=== PATIENT | male | born 1995 | race Caucasian/White ===

== ENCOUNTER 2017-07-27 12:26 | Inpatient (IN) | payer BC ==
[2017-07-27] MEDS ORDERED: ONDANSETRON DISINTEGRATING 4 MG TAB ONE (14:41)
--- NOTE | 2017-07-27 14:43 | EDPHY ---
H & P Stated Complaint: Vomiting Time Seen by Provider: 07/27/17 14:42 HPI/ROS: CHIEF COMPLAINT: Vomiting, out of insulin HISTORY OF PRESENT ILLNESS: The patient presents the ED with several days of vomiting. The patient is a insulin-dependent diabetic. He reportedly has been out of insulin for the past 4 days. The patient typically takes 32 units of NPH on a daily basis. He has continue to use short-acting insulin without checking his blood sugars as his glucometer is not working. He reports he has not checked his blood sugar in 2 weeks. Patient complains of generalized dizziness, mild dyspnea and a slight headache. He denies any history of fall or trauma. The patient denies significant past medical history. He takes no other medications. REVIEW OF SYSTEMS: A comprehensive 10 point review of systems is otherwise negative aside from elements mentioned in the history of present illness. Source: Patient Exam Limitations: No limitations - Personal History Current Tetanus/Diphtheria Vaccine: Unsure Current Tetanus Diphtheria and Acellular Pertussis (TDAP): Unsure - Medical/Surgical History Hx Asthma: No Hx Chronic Respiratory Disease: No Hx Diabetes: Yes Hx Cardiac Disease: No Hx Renal Disease: No Hx Cirrhosis: No Hx Alcoholism: No Hx HIV/AIDS: No Hx Splenectomy or Spleen Trauma: No Other PMH: ins dept diabetic - Social History Smoking Status: Current every day smoker - Physical Exam Exam: General Appearance: Alert, appears uncomfortable Eyes: Pupils equal and round no pallor or injection ENT, Mouth: Dry mucous membranes Respiratory: There are no retractions, lungs are clear to auscultation Cardiovascular: Regular rate and rhythm Gastrointestinal: Abdomen is soft and nontender, no masses, bowel sounds normal Neurological: A&O, normal motor function, normal sensory exam, normal cranial nerves Skin: Warm and dry, no rashes Musculoskeletal: Neck is supple nontender Extremities: symmetrical, full range of motion Constitutional: Initial Vital Signs Temperature (C) 37.0 C 07/27/17 12:39 Heart Rate 100 07/27/17 12:39 Respiratory Rate 18 07/27/17 12:39 Blood Pressure 113/69 07/27/17 12:39 O2 Sat (%) 98 07/27/17 12:39 O2 Delivery Mode Room Air Allergies/Adverse Reactions: No Known Allergies Allergy (Unverified 07/27/17 12:39) Home Medications: Medication Instructions Recorded novoLOG 07/27/17 Medical Decision Making ED Course/Re-evaluation: The patient presents the ED with vomiting, lack of insulin and general malaise. The patient's fingerstick blood glucose was 300 upon arrival. Patient had an IV established. He received 1 L of normal saline. He is noted to have a venous pH is 7.23 and an anion gap of 27. The patient was given 5 units regular insulin bolus and started on insulin drip. The patient will require admission to the intensive care unit for management of his diabetic ketoacidosis. I consulted with Dr. Tessa Hall at 4:00 p.m. who will admit the patient. I re-evaluated the patient at 4:00 p.m. informing him of the workup and need for hospitalization. Differential Diagnosis: Differential diagnosis considered includes hyperglycemia, dehydration, diabetic ketoacidosis Critical Care Time: Critical care time exclusive of procedures and exclusive of the PA's time was 35 minutes, performed by myself, Aamir Fontana MD. The patient presents to the ED with vomiting and diabetic ketoacidosis. The patient received rehydration with 2 L of normal saline. He was started on insulin drip and given a upon bolus. He will be admitted to the intensive care unit for further stabilization. - Data Points Laboratory Results: Laboratory Results 07/27/17 15:10 07/27/17 15:10 07/27/17 07/27/17 07/27/17 15:10 15:10 15:10 WBC RBC Hgb Hct MCV MCH MCHC RDW Plt Count MPV Neut % (Auto) Lymph % (Auto) Hinds % (Auto) Eos % (Auto) Baso % (Auto) Nucleat RBC Rel Count Absolute Neuts (auto) Absolute Lymphs (auto) Absolute Monos (auto) Absolute Eos (auto) Absolute Basos (auto) Absolute Nucleated RBC Immature Gran % Immature Gran # VBG pH 7.23 L (7.31-7.42) Sodium 139 mEq/L mEq/L (134-144) Potassium 5.2 mEq/L mEq/L (3.5-5.2) Chloride 100 mEq/L mEq/L (97-110) Carbon Dioxide 12 mEq/l L mEq/l (22-31) Anion Gap 27 mEq/L H mEq/L (8-16) BUN 19 mg/dL mg/dL (7-23) Creatinine 0.7 mg/dL mg/dL (0.7-1.3) Estimated GFR > 60 Glucose 381 mg/dL H mg/dL (70-100) POC Glucose Calcium 10.1 mg/dL mg/dL (8.5-10.4) Beta-Hydroxybutyrate Pending Serum Ketones Cancelled 07/27/17 07/27/17 15:10 13:21 WBC 13.26 10^3/uL H 10^3/uL (3.80-9.50) RBC 5.30 10^6/uL 10^6/uL (4.40-6.38) Hgb 16.9 g/dL g/dL (13.7-17.5) Hct 48.2 % % (40.0-51.0) MCV 90.9 fL fL (81.5-99.8) MCH 31.9 pg pg (27.9-34.1) MCHC 35.1 g/dL g/dL (32.4-36.7) RDW 11.3 % L % (11.5-15.2) Plt Count 250 10^3/uL 10^3/uL (150-400) MPV 9.9 fL fL (8.7-11.7) Neut % (Auto) 93.5 % H % (39.3-74.2) Lymph % (Auto) 4.8 % L % (15.0-45.0) Hinds % (Auto) 1.0 % L % (4.5-13.0) Eos % (Auto) 0.0 % L % (0.6-7.6) Baso % (Auto) 0.4 % % (0.3-1.7) Nucleat RBC Rel Count 0.0 % % (0.0-0.2) Absolute Neuts (auto) 12.41 10^3/uL H 10^3/uL (1.70-6.50) Absolute Lymphs (auto) 0.63 10^3/uL L 10^3/uL (1.00-3.00) Absolute Monos (auto) 0.13 10^3/uL L 10^3/uL (0.30-0.80) Absolute Eos (auto) 0.00 10^3/uL L 10^3/uL (0.03-0.40) Absolute Basos (auto) 0.05 10^3/uL 10^3/uL (0.02-0.10) Absolute Nucleated RBC 0.00 10^3/uL 10^3/uL (0-0.01) Immature Gran % 0.3 % % (0.0-1.1) Immature Gran # 0.04 10^3/uL 10^3/uL (0.00-0.10) VBG pH Sodium Potassium Chloride Carbon Dioxide Anion Gap BUN Creatinine Estimated GFR Glucose POC Glucose 309 mg/dL H mg/dL (70-100) Calcium Beta-Hydroxybutyrate Serum Ketones Medications Given: Discontinued Medications Sodium Chloride (Ns) 1,000 mls @ 0 mls/hr IV ONCE ONE; Wide Open PRN Reason: Protocol Stop: 07/27/17 15:37 Last Admin: 07/27/17 15:00 Dose: 1,000 mls Point of Care Test Results: 07/27/17 13:21 POC Glucose 309 H Departure - Departure Disposition: [facility] Inpatient Acute Clinical Impression: Diabetic ketoacidosis Condition: Fair Referrals: NONE *PRIMARY CARE P,. [Primary Care Provider] - As per Instructions
[2017-07-27 15:20] LABS: % IMMATURE GRANULYOCYTES 0.3 % (0.0-1.1); ABSOLUTE IMMATURE GRANULOCYTES 0.04 10^3/uL (0.00-0.10); ADD DIFF? NO; ADD MORPH? NO; ADD SCAN? NO; ATYPICAL LYMPHOCYTE FLAG 0 (0-99); FRAGMENT RBC FLAG 0 (0-99); HEMATOCRIT 48.2 % (40.0-51.0); HEMOGLOBIN 16.9 g/dL (13.7-17.5); LEFT SHIFT FLG 0 (0-99); LIPEMIA HEMOLYSIS FLAG 90 (0-99); MEAN CELL HEMOGLOBIN 31.9 pg (27.9-34.1); MEAN CELL HEMOGLOBIN CONCENTR. 35.1 g/dL (32.4-36.7); MEAN CELL VOLUME 90.9 fL (81.5-99.8); MEAN PLATELET VOLUME 9.9 fL (8.7-11.7); PLATELET CLUMPS FLAG 0 (0-99); PLATELET COUNT 250 10^3/uL (150-400); RED CELL DISTRIBUTION WIDTH 11.3 % (11.5-15.2)
[2017-07-27 15:32] LABS: ANION GAP 27 mEq/L (8-16); CALCIUM 10.1 mg/dL (8.5-10.4); CARBON DIOXIDE 12 mEq/l (22-31); CHLORIDE 100 mEq/L (97-110); CREATININE 0.7 mg/dL (0.7-1.3); GLOMERULAR FILTRATION RATE > 60; GLUCOSE 381 mg/dL (70-100); POTASSIUM 5.2 mEq/L (3.5-5.2); SODIUM 139 mEq/L (134-144)
[2017-07-27] MEDS ORDERED: NS 1,000 ML IV ONE ×2 (15:36→15:49)
[2017-07-27] MEDS ORDERED: INSULIN REGULAR HUMAN 100 UNIT/ML IVP ONE (15:49)
[2017-07-27] MEDS ORDERED: INSULIN REGULAR HUMAN 100 UNIT, COSIGN. REQUIRED 1 EA in NS 100 ML IV ONE (15:49)
[2017-07-27] MEDS ORDERED: ONDANSETRON 4 MG/2 ML VIAL IVP PRN (17:43)
[2017-07-27] MEDS ORDERED: PROMETHAZINE HCL 25 MG/ML INJ IVP PRN (17:43)
[2017-07-27] MEDS ORDERED: ACETAMINOPHEN 325 MG TAB PO PRN (17:43)
[2017-07-27] MEDS ORDERED: D5W 1/2 NS W/ 20 KCl/L 1,000 ML IV SCH (17:45)
--- NOTE | 2017-07-27 18:23 | GHP ---
[f rep st] HISTORY AND PHYSICAL DATE OF ADMISSION: 07/27/2017 CHIEF COMPLAINT: Vomiting. HISTORY: The patient is a 22-year-old type 1 diabetic since age 9, who just moved to [place] from [facility] 1-1/2 months ago. He has not yet established a local physician. He ran out of his ins ulin because his physician in [place] was not willing to prescribe him anymore since he is out of the area. He has not had any Lantus for 4 days. He also ran out of glucose monitoring strips. He has a lot of short-acting insulin, which he has continued to take, but he has been unable to check his glucose. His symptoms include nausea, vomiting, stomach pain, congestion, weakness, fatigue, he adache, dizziness, and dry mouth. He did have a job interview today but vomited during the interview . PAST MEDICAL HISTORY: Diabetes type 1 since age 9. He has had DKA 1-2 times in the past. MEDICATIONS: Please see computer record for full detailed list. ALLERGIES: No known drug allergies. SOCIAL HISTORY: He has just moved here from [place], [place]. He is living with his broth er. Currently working on getting a job. He has a supportive mother back in [place] who is melanie sanches to mail him some insulin. REVIEW OF SYSTEMS: Complete review of systems obtained. Review of systems is negative regarding con stitutional, HEENT, GI, pulmonary, cardiovascular, , hematology, skin, musculoskeletal, endocrine, psych, except for positives and negatives as noted in HPI. FAMILY HISTORY: Reviewed and noncontributory to presenting complaint. PHYSICAL EXAMINATION: GENERAL: Well-developed, well-nourished male, in no acute distress. VITAL SI GNS: Temperature 37.0, pulse 102, blood pressure 114/77, saturating 100% on room air. EYES: Normal conjunctivae. Pupils are equal, round, reactive to light. ENT: Normal ears and nose. Hearing int act. Normal lips and teeth. Oropharynx moist. NECK: Trachea midline. No thyromegaly. CHEST: No rmal respiratory effort. LUNGS: Clear to auscultation bilaterally. CARDIOVASCULAR: Regular rate a nd rhythm. No murmur. No lower extremity edema. ABDOMEN: Soft. Nontender. No hepatosplenomegaly . SKIN: Warm, dry, intact. No rash. MUSCULOSKELETAL: No cyanosis or clubbing. Strength 5/5 uppe r and lower extremities. NEUROLOGIC: Cranial nerves intact. Normal sensation to light touch. PSYC H: Alert and oriented x3. Normal mood and affect. Normal judgment and insight. Normal memory. LABORATORY DATA: White count 13.26, hematocrit 48.2, platelets 250. Sodium 139, potassium 5.2, chlo ride 100, bicarb 12, anion gap 27, BUN 19, creatinine 0.7, glucose 381. Venous pH is 7.23. This case was discussed with Dr. Fadi Fontana in the emergency room. He was started on insulin drip fo r DKA. ASSESSMENT AND PLAN: 1. Diabetic ketoacidosis secondary to insulin noncompliance. He just moved to [place] and needs to establish local primary care. He has run out of insulin. Will place on an insulin drip and DKA pro tocol. Will follow serial Chem-7's. Case Management should see him in the morning to help him estab grabiel with a local physician. 2. Leukocytosis. I suspect this is a stress reaction. I doubt he is having a bacterial infection. He does have upper respiratory tract symptoms. Will check a respiratory PCR. Will pursue chest x-r ay only if his leukocytosis and symptoms persist after DKA is resolved. CODE STATUS: Full. ADMISSION STATUS: Will admit to observation as I anticipate discharge home tomorrow once he is out o f DKA. DEEP VEIN THROMBOSIS PROPHYLAXIS: He is low risk. /[id number]/MODL
[2017-07-27 18:41] LABS: ANION GAP 18 mEq/L (8-16); CALCIUM 8.8 mg/dL (8.5-10.4); CARBON DIOXIDE 11 mEq/l (22-31); CHLORIDE 104 mEq/L (97-110); CREATININE 0.6 mg/dL (0.7-1.3); GLOMERULAR FILTRATION RATE > 60; GLUCOSE 239 mg/dL (70-100); POTASSIUM 4.1 mEq/L (3.5-5.2); SODIUM 133 mEq/L (134-144)
[2017-07-27] MEDS: INSULIN REGULAR HUMAN 100 UNIT in NS 100 ML IV SCH ×2 (21:40→22:22)
[2017-07-27 23:05] LABS: ANION GAP 11 mEq/L (8-16); CALCIUM 8.3 mg/dL (8.5-10.4); CARBON DIOXIDE 17 mEq/l (22-31); CHLORIDE 108 mEq/L (97-110); CREATININE 0.5 mg/dL (0.7-1.3); GLOMERULAR FILTRATION RATE > 60; GLUCOSE 201 mg/dL (70-100); POTASSIUM 3.9 mEq/L (3.5-5.2); SODIUM 136 mEq/L (134-144)
[2017-07-28 02:33] LABS: ANION GAP 10 mEq/L (8-16); CALCIUM 8.9 mg/dL (8.5-10.4); CARBON DIOXIDE 19 mEq/l (22-31); CHLORIDE 113 mEq/L (97-110); CREATININE 0.5 mg/dL (0.7-1.3); GLOMERULAR FILTRATION RATE > 60; GLUCOSE 85 mg/dL (70-100); POTASSIUM 4.2 mEq/L (3.5-5.2); SODIUM 142 mEq/L (134-144)
[2017-07-28] MEDS ORDERED: D50W 25 GM/50 ML SYR IVP ONE ×2 (03:17→03:45)
[2017-07-28 03:38] LABS: % IMMATURE GRANULYOCYTES 0.4 % (0.0-1.1); ABSOLUTE IMMATURE GRANULOCYTES 0.07 10^3/uL (0.00-0.10); ADD DIFF? NO; ADD MORPH? NO; ADD SCAN? NO; ATYPICAL LYMPHOCYTE FLAG 10 (0-99); FRAGMENT RBC FLAG 0 (0-99); HEMATOCRIT 39.6 % (40.0-51.0); HEMOGLOBIN 14.6 g/dL (13.7-17.5); LEFT SHIFT FLG 0 (0-99); LIPEMIA HEMOLYSIS FLAG 90 (0-99); MEAN CELL HEMOGLOBIN 32.8 pg (27.9-34.1); MEAN CELL HEMOGLOBIN CONCENTR. 36.9 g/dL (32.4-36.7); MEAN PLATELET VOLUME 9.7 fL (8.7-11.7); PLATELET CLUMPS FLAG 0 (0-99); PLATELET COUNT 314 10^3/uL (150-400); RED BLOOD CELL COUNT 4.45 10^6/uL (4.40-6.38); RED CELL DISTRIBUTION WIDTH 11.4 % (11.5-15.2)
[2017-07-28 04:12] LABS: ANION GAP 10 mEq/L (8-16); CALCIUM 8.5 mg/dL (8.5-10.4); CARBON DIOXIDE 18 mEq/l (22-31); CHLORIDE 110 mEq/L (97-110); CREATININE 0.5 mg/dL (0.7-1.3); GLOMERULAR FILTRATION RATE > 60; GLUCOSE 156 mg/dL (70-100); MAGNESIUM 1.7 mg/dL (1.6-2.3); POTASSIUM 3.7 mEq/L (3.5-5.2); SODIUM 138 mEq/L (134-144)
--- NOTE | 2017-07-28 08:53 | HOSPPROG ---
Hospitalist Progress Note Assessment/Plan: #DKA: due to being out of insulin. Gap closed quickly this morning and restart glargine. However, gap reopened this afternoon. -cont IVF, q4 BMP. -CM assisting with appt at DC #Leukocytosis: Rhino/enterovirus #Metabolic anion gap acidosis: due to DKA. Resolved, but reopened #Diet: cardiac #Disp: warrants inpatient admission with DKA, anion gap acidosis. Requires insulin, serial BMP Critical care time: 35 min reviewing records, discussing med regimen with patient. D/w Dr. Enriquez and ICU team Subjective: still mild abd pain. Drop cough Objective: Vital Signs Temp Pulse Resp BP Pulse Ox 36.8 C 91 18 94/46 L 97 07/28/17 08:00 07/28/17 08:00 07/28/17 08:00 07/28/17 08:00 07/28/17 08:00 Microbiology 07/27/17 20:45 Respiratory Panel (PCR) - Final Nasal, Sinus - [place] Viral Transport Human Rhinovirus/Enterovirus Laboratory Results 07/28/17 03:16 07/28/17 03:40 07/27/17 07/28/17 07/29/17 05:59 05:59 05:59 Intake Total 4865 Output Total 2150 Balance 2715 - Physical Exam Constitutional: no apparent distress Eyes: PERRL Ears, Nose, Mouth, Throat: moist mucous membranes, hearing normal Cardiovascular: regular rate and rhythym, no murmur, rub, or gallop Respiratory: no respiratory distress, no rales or rhonchi Gastrointestinal: normoactive bowel sounds, soft, non-tender abdomen Genitourinary: no bladder fullness Skin: warm Musculoskeletal: full muscle strength Neurologic: AAOx3, CN II-XII Intact Psychiatric: interacting appropriately ICD10 Worksheet Patient Problems: Problems Problem Status Onset Diabetic ketoacidosis Acute
[2017-07-28] MEDS ORDERED: Insulin Aspart [Novolog Flexpen] 0 UNIT SQ SCH (09:00)
[2017-07-28 09:10] LABS: HEMOGLOBIN A1C 12.6 % (4.0-6.0)
[2017-07-28] MEDS ORDERED: D50W 25 GM/50 ML VIAL IVP PRN (09:40)
[2017-07-28] MEDS ORDERED: D50W 25 GM/50 ML SYR IVP PRN ×2 (09:40→17:39)
[2017-07-28] MEDS ORDERED: PARAMETERS MISC PRN (09:40)
[2017-07-28] MEDS: INSULIN LISPRO 100 UNIT/1 ML VIAL LOW SC SCH ×3 (10:09→17:22)
[2017-07-28] MEDS: INSULIN GLARGINE 100 UNITS/ML SYRINGE SC SCH (11:08)
[2017-07-28 12:12] LABS: GLUCOSE 471 mg/dL (70-100)
[2017-07-28] MEDS ORDERED: INSULIN GLARGINE 100 UNITS/ML SYRINGE SC SCH (12:30)
--- NOTE | 2017-07-28 12:53 | ASMTCASEMG ---
Living Arrangements What is your living Answers: With Other Relative(s) arrangement? Who do you live with? Type Of Residence What kind of residence do Answers: House you live in? Discharge Plan Comments Coordination Status Comments Notes: Patient is a 22yo male [place] He is living with his brother in [place]. Patient ran out of his insulin due to his regular dr not being willing to prescribe medications since he is no longer in [place]. Patient was admitted for diabetic ketoacidosis and leukocytosis. Dr. Zeng requests patient be set up with a PCP here in [place]. Contacted [facility] and they have scheduled patient for Monday07-31-17 at 11:30AM with Dr. Masters. Appointment was given to patient. CM will follow for any other d/c needs. Date Signed: 07/28/2017 12:52 PM Electronically Signed By:Cecilia Coulter LCSW
[2017-07-28] MEDS ORDERED: INSULIN GLARGINE 100 UNITS/ML SYRINGE SC ONE (13:00)
[2017-07-28 14:58] LABS: ANION GAP 18 mEq/L (8-16); CALCIUM 9.2 mg/dL (8.5-10.4); CARBON DIOXIDE 16 mEq/l (22-31); CHLORIDE 98 mEq/L (97-110); CREATININE 0.6 mg/dL (0.7-1.3); GLOMERULAR FILTRATION RATE > 60; GLUCOSE 477 mg/dL (70-100); POTASSIUM 4.5 mEq/L (3.5-5.2); SODIUM 132 mEq/L (134-144)
--- NOTE | 2017-07-28 15:28 | ASMTCMCOM ---
CM Note CM Note Notes: Patient was given information on [facility] in the event he has any insurance issues in securing his insulin. Anticipate patient will D/C today. CM available if needs arise. Date Signed: 07/28/2017 03:28 PM Electronically Signed By:Cecilia Coulter LCSW
[2017-07-28] MEDS: INSULIN LISPRO 100 UNIT/ML SC SCH (17:46)
--- NOTE | 2017-07-28 19:41 | PDMN ---
Medical Necessity Medical necessity: C/M review: Patient meets Inpatient criteria under [facility] M- 130 Diabetes (DKA); Acute and persistent DKA due to being out of insulin, 2016: glucose 381-201, anion gap 18, VBG lactic acid 7.23, beta- hydroxybutyrate 5.66, 07/28/2017: glucose 38-477, anion gap 18, leukocytosis, WBC 13.26, 17.33 due to rhino/enterovirus requiring 07/27/2017 IV Regular Human Insulin infusion ongoing IV fluids, transition to subcutaneous insulin, basic metabolic panel labs Q 4 hrs., comorbid type I diabetes. MD anticipates > 2 MN LOS for ongoing med nec for eval and TX of above.
[2017-07-28 21:58] LABS: ANION GAP 12 mEq/L (8-16); CALCIUM 9.7 mg/dL (8.5-10.4); CARBON DIOXIDE 24 mEq/l (22-31); CHLORIDE 97 mEq/L (97-110); CREATININE 0.6 mg/dL (0.7-1.3); GLOMERULAR FILTRATION RATE > 60; GLUCOSE 336 mg/dL (70-100); POTASSIUM 4.3 mEq/L (3.5-5.2); SODIUM 133 mEq/L (134-144)
[2017-07-29 01:08] LABS: ANION GAP 12 mEq/L (8-16); CALCIUM 9.5 mg/dL (8.5-10.4); CARBON DIOXIDE 25 mEq/l (22-31); CHLORIDE 99 mEq/L (97-110); CREATININE 0.6 mg/dL (0.7-1.3); GLOMERULAR FILTRATION RATE > 60; GLUCOSE 301 mg/dL (70-100); SODIUM 136 mEq/L (134-144)
[2017-07-29] MEDS: NS 1,000 ML IV SCH ×2 (04:59→08:37)
[2017-07-29 05:07] LABS: HEMATOCRIT 42.8 % (40.0-51.0); HEMOGLOBIN 14.9 g/dL (13.7-17.5); MEAN CELL HEMOGLOBIN 31.3 pg (27.9-34.1); MEAN CELL HEMOGLOBIN CONCENTR. 34.8 g/dL (32.4-36.7); MEAN CELL VOLUME 89.9 fL (81.5-99.8); RED BLOOD CELL COUNT 4.76 10^6/uL (4.40-6.38); RED CELL DISTRIBUTION WIDTH 11.3 % (11.5-15.2)
[2017-07-29 05:37] LABS: ANION GAP 11 mEq/L (8-16); CARBON DIOXIDE 24 mEq/l (22-31); CHLORIDE 102 mEq/L (97-110); CREATININE 0.6 mg/dL (0.7-1.3); GLOMERULAR FILTRATION RATE > 60; GLUCOSE 255 mg/dL (70-100); SODIUM 137 mEq/L (134-144)
[2017-07-29] MEDS: INSULIN GLARGINE 100 UNITS/ML SYRINGE SC SCH (08:33)
[2017-07-29] MEDS: INSULIN LISPRO 100 UNIT/ML SC SCH (08:33)
[2017-07-29 10:20] VITALS: BP 112/66; PULSE 96; RESP 17; TEMP 98.4; O2SAT 95
--- NOTE | 2017-07-29 10:36 | HOSPPROG ---
Hospitalist Progress Note Assessment/Plan: 22 yo M w DKA 2/2 no long acting insulin gap closed eating counselled smoking cessation home today > 30 minutes Subjective: gap closed. eating Objective: Vital Signs Temp Pulse Resp BP Pulse Ox 36.9 C 96 17 112/66 95 07/29/17 10:00 07/29/17 10:00 07/29/17 10:00 07/29/17 10:00 07/29/17 10:00 Laboratory Results 07/29/17 05:00 07/29/17 05:00 07/28/17 07/29/17 07/30/17 05:59 05:59 05:59 Intake Total 3355 Balance 3355 - Physical Exam Constitutional: no apparent distress, appears nourished Eyes: PERRL, anicteric sclera Ears, Nose, Mouth, Throat: moist mucous membranes, hearing normal Cardiovascular: regular rate and rhythym, no murmur, rub, or gallop Respiratory: no respiratory distress, no rales or rhonchi, expiratory wheeze Gastrointestinal: normoactive bowel sounds, soft, non-tender abdomen Genitourinary: no bladder fullness, No stock in urethra Skin: warm, normal color Musculoskeletal: full muscle strength Neurologic: AAOx3 ICD10 Worksheet Patient Problems: Problems Problem Status Onset Diabetic ketoacidosis Acute
--- NOTE | 2017-07-29 11:02 | GDS ---
[f rep st] DISCHARGE SUMMARY DISCHARGE DIAGNOSES: 1. Diabetic ketoacidosis. 2. Type 1 diabetes. 3. Tobacco use. Please see admission history and physical by Dr. Tessa Hall. Patient presented with DKA after carmichael ving no long-acting insulin because he had recently moved here and had no refills. His gap closed wi th an insulin drip but then reopened again. He was observed overnight. His gap has closed. He is e ating. He feels well. He has some wheezing consistent with an upper respiratory infection, but is o therwise well. Smoking cessation was counseled and advised. /[id number]/MODL
--- NOTE | 2017-07-29 18:54 | ASDISCHSUM ---
Discharge Information Plan Status:Home with No Needs Medically Cleared to Leave:07/28/2017 Discharge Date:07/29/2017 11:48 AM CM D/C Disposition:Home, Routine, Self-Care ADT D/C Disposition:Home, Routine, Self-Care Projected Discharge Date:07/29/2017 11:48 AM Transportation at D/C:Taxicab Discharge Delay Reason: Follow-Up Date:07/29/2017 11:48 AM Discharge Slot:1 - 8:01 am - 12:00 noon Final Diagnosis:Type I diabetes, Diabetic Ketoacidosis, tobacco use Placement Information Patient Contact Information Contact Name:MYLENE Relationship:Mother Address:[address] [place] [address] Work Phone: City:[facility] Phone: State/Zip Code:[place] [address] Email: Financial Information Financial Class:HMO and PPO Plans Primary Plan Desc: OUT OF STATE PPO Primary Plan Number:[id number] Secondary Plan Desc: Secondary Plan Number: Assessment Information [facility] Initial CM Assessment Living Arrangements What is your living Answers: With Other Relative(s) arrangement? Who do you live with? Type Of Residence What kind of residence do Answers: House you live in? Discharge Plan Comments Coordination Status Comments Notes: Patient is a 22yo male who recently moved to [place] from [place]. He is living with his brother in [place]. Patient ran out of his insulin due to his regular dr not being willing to prescribe medications since he is no longer in [place]. Patient was admitted for diabetic ketoacidosis and leukocytosis. Dr. Zeng requests patient be set up with a PCP here in [place]. Contacted [facility] and they have scheduled patient for Monday07-31-17 at 11:30AM with Dr. Masters. Appointment was given to patient. CM will follow for any other d/c needs. Date Signed: 07/28/2017 12:52 PM Electronically Signed By:Cecilia Coulter LCSW [facility] CM Progress Note CM Note CM Note Notes: Patient was given information on [facility] in the event he has any insurance issues in securing his insulin. Anticipate patient will D/C today. CM available if needs arise. Date Signed: 07/28/2017 03:28 PM Electronically Signed By:Cecilia Coulter LCSW Case Management Discharge Plan Note Case Management Discharge Discharge Order Complete? Answers: Yes Followup Appointment 07/31/2017 11:30 AM Patient to Obtain Answers: Independently Medications Transportation Arranged Answers: Taxi - Voucher Transport will Pick (Date 07/29/2017 11:00 AM & Time) EMTALA Complete Answers: No Notes: n/a Case Management Transport Answers: No Notes: n/a Form Complete Faxed Final Orders Answers: No Notes: n/a Agency/Facility Transfer Answers: No Notes: n/a Report Printed & Faxed to Receiving Agency Family Notified Answers: No Notes: Pt to notify Discharge Comments Notes: Reviewed chart regarding discharge plan, pt's progress. Per MD, pt to discharge home independently w/ no identified needs. requested taxicab voucher so pt wouldn't have to walk across town. Pt new to [place], [facility] w/ utilizing bus, no [place] available. [employer] called for ride; voucher provided. Pt given follow-up information for appt at [facility] Monday07/31/17 at 11:30. Pt also given phone number for [facility]. IM not signed, not applicable. CM avail for any further issues or concerns. Date Signed: 07/29/2017 06:53 PM Electronically Signed By:Erlinda Rosenberg RN Intervention Information Intervention Type:Clip Date of Service:07/29/2017 06:49 PM Patient Type:Inpatient Staff Member:ESPERANZA Rosenberg Taylor Hours:0.25 Discipline: Severity: Comment:Paulina called at MD request. Pt to [facility] to get home.
== END 2017-07-29 11:48 | disposition home or self-care (01) | DRG 639 ==
LOC: F2N 17:12 → OBSVTOIN 07-28 16:30
PROVIDERS: ADMIT Internal Medicine; ATTEND Internal Medicine
DX: E11.10 Type 2 diabetes mellitus with ketoacidosis without coma (principal); T38.3X6A Underdosing of insulin and oral hypoglycemic [antidiabetic] drugs, initial encounter; F17.210 Nicotine dependence, cigarettes, uncomplicated
CPT/HCPCS: 82947-QW; G0378; J1815